=== PATIENT | male | born 1995 | race African-American/Black ===

== ENCOUNTER 2018-06-25 13:47 | Emergency (ER) | payer BC ==
[2018-06-25 13:52] VITALS: BP 120/71; PULSE 77; TEMP 99; BMI 25.8
--- NOTE | 2018-06-25 14:47 | PDOC ---
History of Present Illness - General Chief Complaint: Eye Problem Stated Complaint: Eye Problem Time Seen by Provider: 06/25/18 14:22 History Source: Patient Exam Limitations: Clinical Condition - History of Present Illness Initial Comments: 06/25/18 14:50 Patient with no significant past medical history present with complain of bilateral eye redness and itching for 3 days with watery eyes. Denies any other symptoms. Denies cough, nasal congestion, fever, chills, blurry vision or vision change. Denies any contact lens or corrective lens use Timing/Duration: other (3 days) Past History - Past Medical History Allergies/Adverse Reactions: Allergies Allergy/AdvReac Type Severity Reaction Status Date / Time No Known Allergies Allergy Verified 06/25/18 13:52 Home Medications: Ambulatory Orders Ketotifen Fumarate [Zaditor] 2 drop OP BID PRN 5 Days #1 bottle 06/25/18 COPD: No - Suicide/Smoking/Psychosocial Hx Smoking History: Current every day smoker Number of Cigarettes Smoked Daily: 2 Information on smoking cessation initiated: No Substance Use Type: Marijuana Review of Systems - Review of Systems Able to Perform ROS?: Yes Is the patient limited [place]ian proficient: No Constitutional: No: Chills, Diaphoresis, Fever, Loss of Appetite, Malaise, Night Sweats, Weakness, Weight Stable, Unintentional Wgt. Loss, Unexplained wgt Loss, Other HEENTM: Yes: See HPI, Eye Pain (b/l eyes irritation), Tearing (b/l eyes). No: Blurred Vision, Recent change in vision, Double Vision, Cataracts, Ear Pain, Ocular Prothesis, Ear Discharge, Nose Pain, Nose Congestion, Tinnitus, Nose Bleeding, Hearing Loss, Throat Pain, Throat Swelling, Mouth Pain, Dental Problems, Difficulty Swallowing, Mouth Swelling, Other Respiratory: No: Cough, Orthopnea, Shortness of Breath, SOB with Exertion, SOB at Rest, Stridor, Wheezing, Productive cough, Hemoptysis, Other Cardiac (ROS): No: Chest Pain, Edema, Irregular Heart Rate, Lightheadedness, Palpitations, Syncope, Chest Tightness, Other ABD/GI: No: Abdominal Distended, Abd. Pain w/ defecation, Blood Streaked Bowels , Constipated, Diarrhea, Difficulty Swallowing, Nausea, Poor Appetite, Poor Fluid Intake, Rectal Bleeding, Vomiting, Indigestion, Abdominal cramping, Tarry Stools, Other All Other Systems: Reviewed and Negative *Physical Exam - Vital Signs Last Vital Signs Temp Pulse Resp BP Pulse Ox 99 F 77 18 120/71 100 06/25/18 13:49 06/25/18 13:49 06/25/18 13:49 06/25/18 13:49 06/25/18 13:49 - Physical Exam Comments: 06/25/18 14:52 GENERAL: Well developed, well nourished. Awake and alert. No acute distress. HEENT: Mild erythema in bilateral conjunctiva. No discharge from bilateral eyes.Normocephalic, atraumatic. PERRLA, EOMI. Sclera are non-icteric. Moist mucous membranes. Oropharynx is clear. NECK: Supple. Full ROM. No JVD. Carotid pulses 2+ and symmetric, without bruits. No thyromegaly. No lymphadenopathy. CARDIOVASCULAR: Regular rate and rhythm. No murmurs, rubs, or gallops. Distal pulses are 2+ and symmetric. PULMONARY: No evidence of respiratory distress. Lungs clear to auscultation bilaterally. No wheezing, rales or rhonchi. ABDOMINAL: Soft. Non-tender. Non-distended. No rebound or guarding. No organomegaly. Normoactive bowel sounds. MUSCULOSKELETAL Normal range of motion at all joints. No bony deformities or tenderness. No CVA tenderness. EXTREMITIES: No cyanosis. No clubbing. No edema. No calf tenderness. SKIN: Warm and dry. Normal capillary refill. No rashes. No jaundice. NEUROLOGICAL: Alert, awake, appropriate. Cranial nerves 2-12 intact. No deficits to light touch and temperature in face, upper extremities and lower extremities. No motor deficits in the in face, upper extremities and lower extremities. Normoreflexic in the upper and lower extremities. Normal speech. Toes are down- going bilaterally. Gait is normal without ataxia. PSYCHIATRIC: Cooperative. Good eye contact. Appropriate mood and affect. General Appearance: Yes: Nourished, Appropriately Dressed. No: Apparent Distress Medical Decision Making - Medical Decision Making 06/25/18 14:42 Kelly with no significant past medical history presenting with complain of 3 days history of redness and itching bilateral eyes with watery tearing in bilateral eyes. Symptoms likely ALLERGIC conjunctivitis. Patient will be treated with eyedrops to help release symptoms with ophthalmology follow-up as needed *DC/Admit/Observation/Transfer Diagnosis at time of Disposition: Conjunctivitis Qualifiers: Conjunctivitis type: acute Acute conjunctivitis type: viral Laterality: bilateral Qualified Code(s): B30.9 - Viral conjunctivitis, unspecified - Discharge Dispostion Disposition: HOME Condition at time of disposition: Stable Decision to Admit order: No - Prescriptions Prescriptions: Ketotifen Fumarate [Zaditor] 2 drop OP BID PRN 5 Days #1 bottle PRN Reason: eye redness and irritation - Referrals Referrals: Geoff Graham [Staff Physician] - - Patient Instructions Printed Discharge Instructions: DI for Conjunctivitis Additional Instructions: use eye drops as prescribed for eye irritations. follow-up with ophthalmology if symptoms persists for more than 3 days - Post Discharge Activity
== END 2018-06-25 14:51 | disposition home or self-care (01) ==
LOC: JERFT 13:47
DX: B30.9 Viral conjunctivitis, unspecified (principal); F17.210 Nicotine dependence, cigarettes, uncomplicated
CPT/HCPCS: 99281-25

== ENCOUNTER 2024-03-28 21:24 | Emergency (ER) | payer SELFPAY ==
[2024-03-28 21:28] VITALS: BP 141/90; PULSE 92; RESP 18; TEMP 98.1; BMI 30.5
[2024-03-28 22:31] LABS: BASO % 0.8 % (0-2.0); EOS % 3.4 % (0-4.5); HEMOGLOBIN 14.1 GM/dL (11.7-16.9); LYMPH % 24.5 % (8-40); MCH 30.3 pg (25.7-33.7); MCHC 34.5 g/dl (32.0-35.9); MEAN CELL VOLUME 87.9 fl (80-96); MEAN PLT VOLUME 8.2 fl (7.5-11.1); MONO % 8.8 % (3.8-10.2); NEUT % 62.5 % (42.8-82.8); PLATELET COUNT 251 10^3/uL (134-434); RBC 4.67 M/mm3 (4.00-5.60); RDW 13.4 % (11.9-15.9); WHITE BLOOD COUNT 9.7 K/mm3 (4.0-10.0)
[2024-03-28 22:47] LABS: URINE APPEARANCE CLEAR; URINE BILIRUBIN NEGATIVE (NEGATIVE); URINE COLOR YELLOW; URINE GLUCOSE (UA) NEGATIVE (NEGATIVE); URINE KETONE TRACE (NEGATIVE); URINE LEUK ESTERASE NEGATIVE (NEGATIVE); URINE NITRITE NEGATIVE (NEGATIVE); URINE PROTEIN NEGATIVE (NEGATIVE)
[2024-03-28 23:02] LABS: POTASSIUM 3.6 mmol/L (3.5-5.1)
[2024-03-28 23:04] LABS: ALBUMIN 3.8 g/dl (3.4-5.0); BLOOD UREA NITROGEN 12.5 mg/dL (7-18)
[2024-03-28 23:07] LABS: CREATININE 1.2 mg/dL (0.55-1.3)
[2024-03-28 23:09] LABS: BILIRUBIN,TOTAL 0.4 mg/dL (0.2-1); TOT PROT 7.4 g/dl (6.4-8.2)
== END 2024-03-28 23:57 | disposition home or self-care (01) ==
LOC: JER 21:24
DX: R19.7 Diarrhea, unspecified (principal); K92.1 Melena; R10.32 Left lower quadrant pain
CPT/HCPCS: 36415; 80053; 81003; 82272; 85025; 87086; 99283-25